=== PATIENT | male | born 1975 | race Caucasian/White ===

== ENCOUNTER 2016-11-29 00:05 | Emergency (ER) | payer SELFPAY ==
[2016-11-29 00:21] VITALS: BP 106/73
--- NOTE | 2016-11-29 02:22 | EDM.PDOC ---
ED HISTORY OF PRESENT ILLNESS - General Chief Complaint: Chest Pain Stated Complaint: POSSIBLE HEART ATTACK Time Seen by Provider: 11/29/16 00:10 - History of Present Illness INITIAL COMMENTS - FREE TEXT/NARRATIVE: every 1-year-old female presents to the emergency room with chest pain. Patient states things been going on for 3 or 4 days he comes and goes. The patient does not have worsening symptoms with activity he spends most of his time sitting in front of the computer and the pain can come and go with this at the time the pain goes into his left arm and up into his neck and into the muscles between his neck and his left shoulder. The pain is not associated with shortness of breath no diaphoresis no nausea no vomiting. Patient has no prior history of coronary artery disease family history is negative with many family members living into very high ages. The patient has never had hyperlipidemia or hypertension however he smokes. Patient does not use drugs or alcohol he does drink large amounts of coffee. - Related Data Allergies/ADRs: Allergies Allergy/AdvReac Type Severity Reaction Status Date / Time No Known Allergies Allergy Verified 11/29/16 00:21 Home Meds: Home Meds . [No Known Home Meds] 11/29/16 [History] Past Medical History - Past Health History Medical/Surgical History: Denies Medical/Surgical History Social & Family History - Tobacco Use Smoking Status *Q: Current Every Day Smoker Years of Tobacco use: 31 Packs/Tins Daily: 1.5 - Caffeine Use Caffeine Use: Reports: Coffee - Recreational Drug Use Recreational Drug Use: No ED ROS GENERAL - Review of Systems Review Of Systems: See Below Constitutional: Reports: no symptoms. Denies: fever, chills HEENT: Reports: No symptoms Respiratory: Reports: no symptoms. Denies: cough Cardiovascular: Reports: Chest pain. Denies: Blood pressure problem, Claudication, Dyspnea on exertion, Edema, Lightheadedness, Orthopnea, Palpitations, PND, Syncope Endocrine: Reports: no symptoms GI/Abdominal: Reports: No symptoms : Reports: no symptoms Musculoskeletal: Reports: no symptoms Skin: Reports: no symptoms Neurological: Reports: no symptoms Hematologic/Lymphatic: Reports: no symptoms ED EXAM, GENERAL - Physical Exam Exam: See Below Exam Limited By: No limitations General Appearance: alert, no apparent distress Head: atraumatic, normocephalic Neck: normal inspection, supple, non-tender, full range of motion. No: lymphadenopathy (L), lymphadenopathy (R) Respiratory/Chest: no respiratory distress, lungs clear, normal breath sounds Cardiovascular: regular rate, rhythm, no edema, no murmur GI/Abdominal: normal bowel sounds, soft, non tender, no organomegaly, no distention, no abnormal bruit, no mass Back Exam: normal inspection. No: CVA tenderness (L), CVA tenderness (R) Extremities: normal inspection, no pedal edema Neurological: alert, oriented Psychiatric: normal affect, normal mood Course - Vital Signs Last Recorded V/S: Last Vital Signs Temp 36.6 C 11/29/16 00:11 Pulse 65 11/29/16 00:11 Resp 16 11/29/16 00:11 BP 106/73 11/29/16 00:11 Pulse Ox 100 11/29/16 00:11 - Orders/Labs/Meds Orders: Active Orders 24 hr Category Date Time Status EKG Documentation Completion [RC] STAT Care 11/29/16 00:38 Active Chest 1V Frontal [CR] Stat Exams 11/29/16 00:38 Taken Labs: Laboratory Tests 11/29/16 11/29/16 Range/Units 00:18 00:18 WBC 14.99 H (4.23-9.07) K/mm3 RBC 5.07 (4.63-6.08) M/mm3 Hgb 15.6 (13.7-17.5) gm/L Hct 45.5 (40.1-51.0) % MCV 89.7 (79.0-92.2) fl MCH 30.8 (25.7-32.2) pg MCHC 34.3 (32.2-35.5) g/dl RDW Std Deviation 43.6 (35.1-43.9) fL Plt Count 263 (163-337) K/mm3 MPV 11.0 (9.4-12.3) fl Neutrophils % (Manual) 82 H (40-60) % Band Neutrophils % 1 (0-10) % Lymphocytes % (Manual) 16 L (20-40) % Atypical Lymphs % 0 % Immat Monocytes % (Man) 0 Monocytes % (Manual) 1 L (2-10) % Eosinophils % (Manual) 0 L (0.8-7.0) % Basophils % (Manual) 0 L (0.2-1.2) Metamyelocytes % 0 Myelocytes % 0 Promyelocytes % 0 Blast Cells % 0 Plasma Cell % (Manual) 0 Nucleated RBCs 0.0 % Platelet Estimate Adequate RBC Morph Comment Normal Sodium 141 (136-145) mEq/L Potassium 3.6 (3.5-5.1) mEq/L Chloride 103 (98-107) mEq/L Carbon Dioxide 28 (21-32) mEq/L Anion Gap 13.6 (5-15) BUN 15 (7-18) mg/dL Creatinine 1.1 (0.7-1.3) mg/dL Est Cr Clr Drug Dosing 80.55 mL/min Estimated GFR (MDRD) > 60 (>60) mL/min BUN/Creatinine Ratio 13.6 L (14-18) Glucose 88 (74-106) mg/dL Calcium 9.1 (8.5-10.1) mg/dL Total Bilirubin 0.3 (0.2-1.0) mg/dL AST 13 L (15-37) U/L ALT 15 L (16-63) U/L Alkaline Phosphatase 80 (46-116) U/L Troponin I < 0.017 (0.00-0.056) ng/mL Total Protein 7.2 (6.4-8.2) g/dl Albumin 4.2 (3.4-5.0) g/dl Globulin 3.0 gm/dL Albumin/Globulin Ratio 1.4 (1-2) - Re-Assessments/Exams Free Text/Narrative Re-Assessment/Exam: 11/29/16 02:24 patient presents emergency room with chest pain at worst a 3/10 substernal just to the right side of the sternum. The patient has been having on and off chest pain for the last 3-4 days. while here in the department his pain is minimal at worst to one usually gone. His EKG was unrevealing laboratory examination unrevealing chest x-ray negative for acute cardiopulmonary changes. Recommended that the patient stay around for a second troponin he was not interested in doing this and certainly was not interested in being observed overnight. He does agree to return for a stress test. The patient has a heart score of 2 one point given for moderately suspicious history second point given for his smoking. Did discuss the ramifications of this including a 1.7% chance of major cardiac event within the next 6 weeks. The patient seems to understand this and will followup from stress test, and followup in the clinic for results. Departure - Departure Time of Disposition: 02:18 Disposition: Home, Self-Care 01 Clinical Impression: Chest pain Instructions: Nonspecific Chest Pain, [id number] Referrals: PCP,None [Primary Care Provider] - Forms: ED Department Discharge Additional Instructions: Return to emergency room if any questions or problems return with worsening or returning of the chest pain. Take baby aspirin one daily, this is 81 mg. You should be contacted for a stress test be certain to get this done. Followup in the hospital clinic 2 days after the stress test is done to get the results. Discuss having her lipids checked as well as routine healthcare. - My Orders Last 24 Hours: My Active Orders 11/29/16 00:38 EKG Documentation Completion [RC] STAT - Assessment/Plan Last 24 Hours: My Active Orders 11/29/16 00:38 EKG Documentation Completion [RC] STAT
--- NOTE | 2016-11-29 08:21 | CR ---
Chest: Portable view of the chest was obtained. Comparison: No previous chest x-ray. Questionable nodule noted within the left mid to upper lung. Lungs otherwise are clear. Heart size and mediastinum are normal. Minimal scoliosis is noted within the spine. Impression: 1. Questionable nodule within the left mid to upper chest. Noncontrast chest CT recommended to further evaluate. 2. Nothing acute is otherwise seen on portable chest x-ray. Diagnostic code #9
== END 2016-11-29 02:29 | disposition home or self-care (01) ==
LOC: JD.ED 00:05
DX: R07.89 Other chest pain (principal); F17.210 Nicotine dependence, cigarettes, uncomplicated
CPT/HCPCS: 36415; 71010; 71010-26; 80053; 84484; 85025; 93005; 99284; 99285-25